=== PATIENT | male | born 1960 | race Caucasian/White ===

== ENCOUNTER 2020-09-17 14:47 | Emergency (ER) | payer OTHER ==
[~2020-09-17] VITALS: Ht 182.9 cm; Wt 95.0 kg
[2020-09-17] MEDS ORDERED: IBUP-2029 MT (16:14)
[2020-09-17] MEDS ORDERED: SULF1TAB48 MT (16:14)
[2020-09-17] MEDS ORDERED: CEPH500C2 MT (16:14)
[2020-09-17] MEDS ORDERED: IBUPROFEN 600MG TABLET PO ONE (16:15)
[2020-09-17 16:43] VITALS: BP 108/62
== END 2020-09-17 17:37 ==
LOC: ER 15:08
DX: R52 Pain, unspecified (principal)
CPT/HCPCS: 99283